=== PATIENT | female | born 1985 | race Hispanic/Latino ===

== ENCOUNTER 2016-10-15 18:42 | Emergency (ER) | payer OTHER ==
[2016-10-15 20:21] LABS: Basophils % (Auto) 0.8 % (0.0-1.8); Eosinophils % (Auto) 4.6 % (0.0-4.3); Hematocrit 39.7 % (30.3-42.9); Hemoglobin 12.8 gm/dl (10.1-14.3); Mean Corpuscular HGB Conc 32 % (30-34); Mean Corpuscular Hemoglobin 28 pg (28-32); Mean Corpuscular Volume 87 fl (79-97); Platelet Count 274 K/mm3 (140-440); Red Blood Count 4.57 M/mm3 (3.65-5.03); Red Cell Distribution Width 14.2 % (13.2-15.2); White Blood Count 7.8 K/mm3 (4.5-11.0)
[2016-10-15 20:36] LABS: Alanine Aminotransferase 46 units/L (7-56); Albumin 3.9 g/dL (3.9-5); Albumin/Globulin Ratio 1.3 %; Alkaline Phosphatase 107 units/L (35-129); Anion Gap 22 mmol/L; Bilirubin,Total 0.4 mg/dL (0.1-1.2); Blood Urea Nitrogen 12 mg/dL (7-17); Calcium 8.4 mg/dL (8.4-10.2); Carbon Dioxide 23 mmol/L (22-30); Chloride 99.2 mmol/L (98-107); Glucose 106 mg/dL (65-100); Lipase 29 units/L (13-60); Potassium 3.9 mmol/L (3.6-5.0); Sodium 140 mmol/L (137-145); Total Protein 6.9 g/dL (6.3-8.2)
[2016-10-15] MEDS ORDERED: MORPHINE IV ONE (21:21)
[2016-10-15] MEDS ORDERED: ZOFRAN IV ONE (21:21)
--- NOTE | 2016-10-15 21:25 | Emergency Department Report ---
HPI - General Chief Complaint: Abdominal Pain Time Seen by Provider: 10/15/16 21:01 - HPI HPI: This is a 31-year-old female presents to the emergency department with a three-day history of epigastric and right upper quadrant pain, as well as nausea and vomiting. Patient says that she has a history of gallstones and thinks that this might be the cause of her discomfort. She tried some Pepto- Bismol for her symptoms without any relief. She says that she had a gastric bypass in [address] scan during that time and the gallstones were found. Patient also presents with very elevated blood pressure. She says that she had a history of hypertension before the gastric bypass but the hypertension resolved with weight loss. However the patient has gained more weight back recently. She denies any tobacco abuse or illicit drug use. No recent travel or sick contacts at home. She is switching between primary care doctors and has her first appointment with the new PCP on October 24. ED Past Medical Hx - Past Medical History Hx Asthma: Yes Additional medical history: gallstones - Surgical History Additional Surgical History: gastric bypass - Social History Smoking Status: Former Smoker Substance Use Type: Alcohol - Medications Home Medications: Home Medications Medication Instructions Recorded Confirmed Last Taken Type HYDROcodone/APAP 5-325 [[place] 1 each PO Q6HR PRN #12 tablet 10/15/16 Unknown Rx 5/325] Ondansetron [Zofran Odt] 4 mg PO Q8HR PRN #10 tab.rapdis 10/15/16 Unknown Rx amLODIPine [Norvasc] 5 mg PO DAILY #30 tab 10/15/16 Unknown Rx ED Review of Systems ROS: Stated complaint: ABD PAIN Other details as noted in HPI Comment: All other systems reviewed and negative Constitutional: denies: chills, fever Eyes: denies: eye pain, eye discharge, vision change ENT: denies: ear pain, throat pain Respiratory: denies: cough, shortness of breath, wheezing Cardiovascular: denies: chest pain, palpitations Gastrointestinal: abdominal pain, nausea, vomiting Genitourinary: denies: urgency, dysuria, discharge Musculoskeletal: denies: back pain, joint swelling, arthralgia Skin: denies: rash, lesions Neurological: denies: headache, weakness, paresthesias Physical Exam - Physical Exam Vital Signs: Vital Signs 10/15/16 10/15/16 19:51 21:09 Temperature 98.4 F 98.4 F Pulse Rate 100 H 98 H Respiratory 20 20 Rate Blood Pressure 226/147 Blood Pressure 186/96 [Left] O2 Sat by Pulse 99 99 Oximetry Physical Exam: GENERAL: The patient is well-developed well-nourished. HEENT: Normocephalic. Atraumatic. Extraocular motions are intact. Patient has moist mucous membranes. Pupils equal reactive to light bilaterally. NECK: Supple. Trachea is midline. CHEST/LUNGS: Clear to auscultation. There is no respiratory distress noted. HEART/CARDIOVASCULAR: Regular. There is no tachycardia. There is no gallop rub or murmur. ABDOMEN: Abdomen is soft. There is some tenderness palpation to the epigastric and right upper quadrant and right middle region of the abdomen. No guarding or rebound tenderness. No peritoneal signs. Morbidly obese habitus. Patient has normal bowel sounds. There is no abdominal distention. SKIN: There is no rash. Warm and dry. NEURO: The patient is awake, alert, and oriented. The patient is cooperative. The patient has no focal neurologic deficits. The patient has normal speech. MUSCULOSKELETAL: There is no tenderness or deformity. There is no limitation range of motion. There is no evidence of acute injury. ED Course Vital Signs 10/15/16 10/15/16 19:51 21:09 Temperature 98.4 F 98.4 F Pulse Rate 100 H 98 H Respiratory 20 20 Rate Blood Pressure 226/147 Blood Pressure 186/96 [Left] O2 Sat by Pulse 99 99 Oximetry ED Medical Decision Making - Lab Data Result diagrams: 10/15/16 20:03 10/15/16 20:03 - Radiology Data Radiology results: report reviewed Right upper quadrant abdominal ultrasound shows cholelithiasis without cholecystitis. There is some mild dilation of the common bile duct at 9 mm. - Medical Decision Making 31-year-old female with history of gallstones presents to the emergency department with upper abdominal pain, nausea, vomiting the past few days. Patient's labs are mostly unremarkable. She has normal belly labs including LFTs, bilirubin and lipase. Patient is not . No significant signs of dehydration. Patient presented with elevated blood pressure. She was given Zofran for nausea and pain medication. Her blood pressures come down to a more reasonable level. Ultrasound was done that shows cholelithiasis without cholecystitis. There is some mild dilation of common bile duct. Patient is able to display the ability to keep down fluids orally. She'll be discharged home with some Zofran and pain medication. She has a primary care doctor appointment coming up and will also be given gastroenterology. She understands to return to the ER with any worsening of her symptoms or any acute distress. - Differential Diagnosis cholelithiasis, cholecystitis, colitis, GERD, viral syndrome Critical Care Time: No Critical care attestation.: If time is entered above; I have spent that time in minutes in the direct care of this critically ill patient, excluding procedure time. ED Disposition Clinical Impression: Hypertensive urgency Nausea & vomiting Qualifiers: Vomiting type: unspecified Vomiting Intractability: non-intractable Qualified Code(s): R11.2 - Nausea with vomiting, unspecified Cholelithiases Qualifiers: Cholelithiasis location: gallbladder Cholecystitis presence: without cholecystitis Biliary obstruction: without biliary obstruction Qualified Code(s) : K80.20 - Calculus of gallbladder without cholecystitis without obstruction Disposition: DISCHARGED TO HOME OR SELFCARE Is pt being admited?: No Condition: Stable Instructions: Abdominal Pain (ED), Hypertension (ED), Biliary Colic (ED) Additional Instructions: Please follow-up with your primary care doctor as previous scheduled. I have also given you a referral for a [employer] developer. Return to the emergency department with any worsening of her symptoms or any acute distress. You've been prescribed a medication that is sedating. Therefore this medication cannot be mixed with alcohol, or taken prior to driving, working, or being responsible for children. Please try to stay away from foods that are high in salt and caffeinated products to assist with her blood pressure. Keep a blood pressure log. I started you on a blood pressure medication, Norvasc, to be taken once daily in the morning. Prescriptions: amLODIPine [Norvasc] 5 mg PO DAILY #30 tab HYDROcodone/APAP 5-325 [[place] 5/325] 1 each PO Q6HR PRN #12 tablet PRN Reason: Pain Ondansetron [Zofran Odt] 4 mg PO Q8HR PRN #10 tab.rapdis PRN Reason: Nausea Referrals: MUMTAZ TAYLOR MD [Primary Care Provider] - 3-5 Days LEELA PAYNE MD [Staff Physician] - 3-5 Days Forms: Accompanied Note, Work/School Release Form(ED) Time of Disposition: 23:32
[2016-10-15 21:53] LABS: Bilirubin,Urine NEG (Negative); Blood,Urine NEG (Negative); Ketones,Urine TR mg/dL (Negative); Leukocyte Esterase,Urine NEG (Negative); Mucus,Urine FEW /HPF; Nitrite,Urine NEG (Negative); Protein,Urine <15 mg/dL mg/dL (Negative); Urobilinogen,Urine < 2.0 mg/dL (<2.0)
--- NOTE | 2016-10-15 22:58 | Ultrasound Report ---
FINAL REPORT PROCEDURE: US ABDOMEN LIMITED TECHNIQUE: Real-time sonography in multiple planes of the gallbladder fossa and CBD with imaging of the adjacent liver, pancreas, and right kidney was performed with image documentation. CPT 54327 HISTORY: RUQ pain, hx of gallstones COMPARISON: No prior studies are available for comparison. FINDINGS: Liver: Normal size and echotexture with no evidence of cystic or solid mass lesion. Gallbladder: There is cholelithiasis. There is no gallbladder wall thickening or pericholecystic fluid.. Intrahepatic bile ducts: Normal . Extrahepatic bile ducts: The common bile duct is dilated at 9 millimeters.. Pancreas: Normal as visualized with suboptimal depiction of the pancreatic tail. Right kidney: Normal echotexture. No focal renal mass, calculus, or hydronephrosis. Other: No free fluid. IMPRESSION: Cholelithiasis. There is no evidence of cholecystitis. Common bile duct is dilated.
[2016-10-15 23:57] VITALS: BP 172/86
== END 2016-10-15 23:59 | disposition home or self-care (01) ==
LOC: ED 18:42
DX: K80.20 Calculus of gallbladder without cholecystitis without obstruction (principal); R11.2 Nausea with vomiting, unspecified; I16.0 Hypertensive urgency; Z87.891 Personal history of nicotine dependence; J45.909 Unspecified asthma, uncomplicated; Z88.1 Allergy status to other antibiotic agents; Z88.8 Allergy status to other drugs, medicaments and biological substances
CPT/HCPCS: 36415; 76705; 80053; 81001; 81025; 83690; 85025; 96374; 96375; 99284; J2270; J2405